=== PATIENT | male | born 1940 | race Caucasian/White ===

== ENCOUNTER → 2020-10-01 | Outpatient (CLI) | payer OTHER ==
[~2020-10-01] MED LIST: ADULT LOW DOSE81 MG PO; CRESTOR20 MG PO; FISH OIL 1,2001 EAC3 PO; GLUCOPHAGE500 MG PO; LISINOPRIL20 MG PO; ONE DAILY FOR1 EACH PO
[2020-10-02 14:07] LABS: ANA INTERPRETATION Positive (Negative)
== END ==
LOC: M.LAB 15:10
PROVIDERS: ATTEND Psychiatry & Neurology Neuromuscular Medicine
DX: R44.3 Hallucinations, unspecified (principal); R41.3 Other amnesia; F03.91 Unspecified dementia, unspecified severity, with behavioral disturbance